=== PATIENT | male | born 1955 | race Caucasian/White ===

== ENCOUNTER 2016-08-29 11:24 | Inpatient (IN) ==
[2016-08-29] MEDS ORDERED: cefOXitin 2,000 MG in D5% in Water (Mini-Bag+) 100 ML IVPB ONE (11:57)
[2016-08-29] MEDS ORDERED: Albuterol 2.5 MG/3 ML NEBULIZER IH ONE ×2 (11:57→13:52)
[2016-08-29] MEDS ORDERED: Famotidine 20 MG/2 ML VIAL IVP ONE (11:59)
[2016-08-29] MEDS ORDERED: Acetaminophen IV 1,000 MG/100 ML INFUS..BTL IVPB ONE (11:59)
[2016-08-29] MEDS ORDERED: Ringers Solution, Lactated 1,000 ML IVC SCH (12:00)
--- NOTE | 2016-08-29 12:02 | Anesthesia Evaluation PreOp ---
Date of Encounter: 08/29/16 Time of Encounter: 12:00 - Past History Planned Operation: Laparoscopic Colectomy Rt Cardiac History: HTN, Hyperlipidemia Pulmonary History: JACQUELINE Dx (non compliant with CPAP) GENERAL OFFICE ASSOCIATE History: Denies Any Significant HX Other Medical History: Denies Any Significant HX Anesthesia History: No Prior Anesthetic Complications Alcohol Use: none Drug use: none Medications and Allergies Aspirin Enteric Coated [Aspirin EC] 81 mg PO DAILY 08/11/16 [History] Lisinopril [Zestril] 20 mg PO DAILY 08/11/16 [History] Lovastatin 40 mg PO DAILY 08/11/16 [History] Allergies No Known Allergies Allergy (Verified 08/11/16 08:10) - Meds/Allergy Pre-op Review Medications Reviewed: Yes Allergies Reviewed: Yes Beta Blockers on Current Med List: No Anesthesia Results - Labs O2 Sat Height 1.83 m Height 1.83 m Weight 131.542 kg Weight 131.542 kg O2 Sat by Pulse Oximetry 94 Vital Signs Temp Pulse Resp BP Pulse Ox 98.2 F 69 18 138/79 94 08/29/16 11:44 08/29/16 11:44 08/29/16 11:44 08/29/16 11:44 08/29/16 11:44 - Imaging EKG: report reviewed (NSR) Anesthesia Exam O2 Sat Height 1.83 m Height 1.83 m Weight 131.542 kg Weight 131.542 kg O2 Sat by Pulse Oximetry 94 Vital Signs Temp Pulse Resp BP Pulse Ox 98.2 F 69 18 138/79 94 08/29/16 11:44 08/29/16 11:44 08/29/16 11:44 08/29/16 11:44 08/29/16 11:44 Height: 6'0 Weight: 290 lbs NPO (# of Hours): MN Pain Scale: 0 - HEENT Pupil (Motor): Pupils equal, EOMI Mallampati: II Teeth: Normal Oral Opening: Greater than 3 - GENERAL OFFICE ASSOCIATE LOC: Oriented GENERAL OFFICE ASSOCIATE Motor: Normal RUE, Normal LUE, Normal RLE, Normal LLE, Normal Face GENERAL OFFICE ASSOCIATE Sensory: Normal: RUE, LUE, RLE, LLE, Face - Cardiac Rhythm: Regular Murmur: None JVD: No Carotid Bruit: No - Pulmonary Breath Sounds: bilateral Clear Respiratory Effort: Symmetrical Anesthesia Assess/Plan ASA Score: 2 Modified [place] Scale for Level of Consciousness: Cooperative, oriented, and tranquil Anesthetic Plan: General Monitoring Plan: Standard Monitors Recovery Plan: PACU (Discussed GA, agrees to proceed)
[2016-08-29] MEDS ORDERED: Lidocaine -MPF 2% 2 ML VIAL ONE ×2 (12:22→16:15)
[2016-08-29] MEDS ORDERED: *HR* Succinylcholine 200 MG/10 ML VIAL IVP ONE (12:22)
[2016-08-29] MEDS ORDERED: Neostigmine Methylsulfate 3 MG/3 ML SYRINGE ONE (12:22)
[2016-08-29] MEDS ORDERED: *HR* FentaNYL (PF) 100 MCG/2 ML VIAL ONE (12:22)
[2016-08-29] MEDS ORDERED: Ondansetron 4 MG/2 ML VIAL ONE ×2 (12:22→16:11)
[2016-08-29] MEDS ORDERED: *HR* Rocuronium Bromide 50 MG/5 ML VIAL ONE (12:22)
[2016-08-29] MEDS ORDERED: Lidocaine -MPF 4% 5 ML AMPUL ONE (12:22)
[2016-08-29] MEDS ORDERED: Dexamethasone 4 MG/ML VIAL ONE (12:22)
[2016-08-29] MEDS ORDERED: *HR* Midazolam HCl 2 MG/2 ML VIAL ONE (12:22)
[2016-08-29] MEDS ORDERED: *HR* Propofol 200 MG/20 ML VIAL IVP ONE (12:23)
--- NOTE | 2016-08-29 12:37 | History & Physical Report ---
Date of Encounter: 08/29/16 Time of Encounter: 12:36 24 Hour HP Update - Instructions Instructions: If the History and Physical is less than 30 days old and was completed prior to A.M. admission and or procedure and has NOT been updated on calendar day of procedure please complete this update prior to performing procedure. - Update Patient reports changes in Medical Condition: No Changes in examination, assessment, or condition: No Changes in Medication: No Preop tests/diagnostics Reviewed: Yes Pre-Op MRSA Screen: Negative Surgery Remains Indicated: Yes Consent for Planned Operative Procedure(s) Verified: Yes - Pre-Operative Checklist Preoperative Checklist Indicated: No Prophylactic Antibiotic Ordered: Yes Home Medications Include Beta Inderjit: No Beta Inderjit Taken Today (Day of Surgery): No Beta Inderjit Taken Yesterday (Day Prior to Surgery): No Is VTE Prophylaxis Indicated?: NO
[2016-08-29] MEDS ORDERED: EPHEDrine 50 MG/ML VIAL ONE (13:20)
[2016-08-29] MEDS ORDERED: *HR* Promethazine 25 MG/ML VIAL IVP PRN (13:51)
[2016-08-29] MEDS ORDERED: *HR* HYDROmorphone (PF) 1 MG/ML SYRINGE IVP PRN (13:51)
[2016-08-29] MEDS ORDERED: *HR* HYDROmorphone 2 MG/ML SYRINGE ONE (15:08)
[2016-08-29] MEDS ORDERED: Ketorolac 30 MG/ML VIAL ONE (16:11)
--- NOTE | 2016-08-29 16:24 | Operative Note ---
Date of procedure: 08/29/16 Pre-op diagnosis: Right colon polyp/mass Post-op diagnosis: same Procedure: Robot right colectomy Anesthesia: KORTNEY Surgeon: Wilner Morin Shop Helper: Josue Suazo Specimen: Right colon; omentum; small bowel Condition: stable Disposition: PACU Procedure in Detail: Date of surgery: 08/29/16 After properly identifying the patient, the patient was brought to the operating room and placed in the supine position. After proper IV sedation was achieved followed by general endotracheal intubation, the patient's abdomen was prepped and draped in a normal sterile fashion. A timeout was performed noting the patient's name and type of procedure to be performed. A 15 blade scalpel was used to make an incision just to the left of the umbilicus and just superior to the umbilicus. A 12 mm Visiport was then used to dissect through the subcutaneous tissue, external and internal oblique fascia, and transversalis abdominis fascia until the abdomen was entered. A laparoscopic camera was placed through the port which showed no injury to the intra- abdominal organs upon entry. The abdomen was insufflated with carbon dioxide and a right lower quadrant 12 mm port, left lower quadrant 12 mm port, and left upper quadrant 5 mm port was then placed under direct camera visualization. The patient was placed in a Trendelenburg position with a tilt towards the left side and the right lower quadrant was examined. The cecum and appendix could be easily identified and were retracted medially. The right lateral attachments were dissected away with Bovie cauterization. Further attachments of the terminal ileum were also dissected free with Bovie cauterization. This allowed for medial rotation of the cecum as well as the distal ileum. Additionally the Mesentery of the ileum was dissected to allow for further retraction of the small bowel. The focus was then placed on the hepatic flexure. First the right colon was retracted anteriorly and the mesentery was scored. The cautery was carried out from left to right with Bovie cauterization and utilization of a laparoscopic LigaSure. Of note staining of the serosa of the mid transverse colon was noted which was at the level of the mid transverse polyps that were removed during a colonoscopy prior to the surgery. Once this was performed dissection was carried out until the duodenum was identified and retracted inferiorly. Further dissection revealed the presence of the liver which was easily identified. The omentum was dissected away from the overlying hepatic flexure and transverse colon with Bovie cauterization and LigaSure. Once this was performed further scoring of the mesentery was performed leading up towards the hepatic flexure/proximal transverse colon. The decision was then made to go ahead and transect across the terminal ileum with a laparoscopic ELIEZER stapler. Once this was performed the decision was made to go ahead and convert to open procedure by making an incision just above the umbilicus for length of approximately 6-7 cm Bovie cauterization. This was carried down through the subcutaneous tissue and rectus fascia until the abdomen was entered. An Chente wound protector was then placed in the wound and the cecum was extruded through the incision. Further dissection with combination Bovie cauterization and then hand-held LigaSure was used to transect across the ileocolic vessels. The proximal transverse colon was then transected with a left scopic ELIEZER stapler. The ileal stump was examined and because of its tethering still in the right lower quadrant further dissection had to be carried out along the mesentery with a hand-held LigaSure. This resulted in needing to transect across the distal ileum and resect the small bowel segment for a length of approximately 10 cm. This was performed with a laparoscopic LigaSure. Additionally, a portion of the omentum which was obscuring the field of view was transected with a hand-held LigaSure and submitted to pathology. The decision was then made to perform a [id number] anastomosis with a laparoscopic ELIEZER stapler. The enterotomy was closed with a TA stapler and imbricated with interrupted 3-0 silk sutures. Hemostasis was noted to be maintained. The "clean/dirty" procedure was utilized during the anastomosis. There ws no evidence of active bleeding and a Seprafilm was placed within the wound/abdomen and the abdominal wall fascia was reapproximated with 2 running # 1 PDS sutures. The subcutaneous tissue was reapproximated with interrupted 2-0 Vicryl sutures and the epidermal and dermal layers for the remaining incisions were closed with ludy. Needle, sponge, and instrument counts were correct 2 and the incisions were covered with a 4x4 gauze and Band-Aids. The patient was aroused him IV sedation, extubated in the operating room without complication, and transported to the recovery room in stable condition.
[2016-08-29] MEDS ORDERED: Ipratropium/Albuterol Neb 3 ML ONE (16:33)
--- NOTE | 2016-08-29 17:36 | Anesthesia Evaluation Post Op ---
Date of Encounter: 08/29/16 Time of Encounter: 17:36 - Vital Signs Vital Signs: Vital Signs/O2 Sat, Most Current Temp Pulse Resp BP Pulse Ox 99.3 F 81 16 108/49 94 08/29/16 17:03 08/29/16 17:23 08/29/16 17:23 08/29/16 17:23 08/29/16 17:23 - Lungs Lungs: Clear Ascult./Percussion - Airway Airway: Non-obstructed - Cardiovascular Regular Rate - Mental Status Mental Status: Asleep with brisk response to light stimulation - Pain Pain Scale: 0 Pain Scale used: Numeric (1 - 10) - Nausea Vomiting Nausea Vomiting: Not Present - Hydration Hydration: NPO, Has not voided - Discharge PostOp Status: Transfer Patient to floor
[2016-08-29] MEDS ORDERED: Ondansetron 4 MG/2 ML VIAL IVP PRN (18:05)
[2016-08-29] MEDS ORDERED: Naloxone 0.4 MG/ML INJ IVP PRN (18:05)
[2016-08-29] MEDS: 0.9 % Sodium Chloride 1,000 ML IVC SCH (18:27)
[2016-08-30] MEDS: *HR* HYDROmorphone (PF) 1 MG/ML SYRINGE IVP PRN ×3 (00:37→14:14)
[2016-08-30] MEDS: cefOXitin 1,000 MG in D5% in Water (Mini-Bag+) 100 ML IVPB SCH ×3 (00:38→15:39)
[2016-08-30 02:53] LABS: Basophils % 0.1 %; Hematocrit 45.2 % (37.5-50.1); Hemoglobin 15.3 g/dL (12.9-16.9); Immature Granulocytes % 0.5 % (0-4); Lymphocytes # 0.7 K/mcL (0.6-4.6); Lymphocytes % 6.7 %; Mean Corpuscular HGB Conc 33.8 g/dL (31.6-35.5); Mean Corpuscular Hemoglobin 29.9 pg (28.0-33.3); Mean Corpuscular Volume 88.5 fL (83.0-100.0); Mean Platelet Volume 10.6 fL (9.4-12.4); Monocytes # 0.5 K/mcL (0.0-1.3); Monocytes % 4.8 %; Neutrophils # 8.9 K/mcL (1.6-8.9); Platelet Count 202 K/mcL (140-400); Red Blood Count 5.11 M/mcL (4.19-5.50); Red Cell Distribution Width 12.4 % (11.5-14.5); Segmented Neutrophils % 87.9 %
[2016-08-30 03:03] LABS: Calcium 8.5 mg/dL (8.6-10.8); Magnesium 1.8 mg/dL (1.6-2.6); Phosphorous 3.2 mg/dL (2.3-4.7)
[2016-08-30 03:09] LABS: Potassium 4.1 mEq/L (3.5-4.5)
[2016-08-30] MEDS: 0.9 % Sodium Chloride 1,000 ML IVC SCH ×2 (04:56→17:53)
[2016-08-30] MEDS: Pantoprazole 40 MG VIAL IVP SCH (08:18)
[2016-08-30] MEDS ORDERED: Ringers Solution, Lactated 1,000 ML IVC ONE (10:19)
--- NOTE | 2016-08-30 11:00 | General Surgery Progress Note ---
Date of Encounter: 08/30/16 Time of Encounter: 10:59 - Assessment and Plan (1) Mass of colon Current Visit: Yes Status: Acute Will Start clears today. Pt to ambulate in hallway. Subjective Patient reports: no new complaints, no flatus Objective Vital Signs - Last 8 Hours Temp Pulse Resp BP Pulse Ox 08/30/16 10:53 98.1 F 77 18 149/55 93 08/30/16 08:21 94 08/30/16 07:00 97.9 F 83 16 151/70 95 08/30/16 04:00 98.1 F 76 17 133/68 95 Intake and Output 08/29/16 08/30/16 08/30/16 23:59 07:59 15:59 Intake Total 0 / 0 1340 / 1340 160 / 160 Output Total 50 / 50 200 / 200 425 / 425 Balance -50 / -50 1140 / 1140 -265 / -265 Intake: IV Fluids 1100 / 1100 100 / 100 0.9 % Sodium Chloride 1, 1000 / 1000 000 ML @ 100 mls/hr IVC . Q10H ERNESTO Rx#:[id number] Mefoxin 1,000 MG In 100 / 100 100 / 100 Dextrose 5% (Minibag+) 100 ML 100 ML @ 200 mls/ hr IVPB Q8HR ERNESTO Rx#: [id number] Oral 0 / 0 240 / 240 60 / 60 Output: Urine 0 / 0 200 / 200 425 / 425 Estimated Blood Loss 50 / 50 Other: Meal NPO breakfast Weight 126.354 kg Blood Glucose* 140 Patient Weight 08/30/16 23:59 Weight 126.354 kg - General physical appearance well developed, well nourished - Eyes PERRL - Abdomen Abdomen: Present: bowel sounds present, soft, non tender - Incision Incision: Present: clean and dry - Labs 08/30/16 01:55 08/30/16 01:55 Diabetes panel 08/30/16 Range/Units 01:55 Sodium 137 (136-145) mEq/L Potassium 4.1 (3.5-4.5) mEq/L Chloride 103 (98-109) mEq/L Carbon Dioxide 26 (19-29) mEq/L BUN 24 (8-26) mg/dL Creatinine 1.50 H (0.72-1.25) mg/dL Glucose 180 H (70-99) mg/dL Calcium 8.5 L (8.6-10.8) mg/dL Calcium panel 08/30/16 Range/Units 01:55 Calcium 8.5 L (8.6-10.8) mg/dL Phosphorus 3.2 (2.3-4.7) mg/dL Pituitary panel 08/30/16 Range/Units 01:55 Sodium 137 (136-145) mEq/L Potassium 4.1 (3.5-4.5) mEq/L Chloride 103 (98-109) mEq/L Carbon Dioxide 26 (19-29) mEq/L BUN 24 (8-26) mg/dL Creatinine 1.50 H (0.72-1.25) mg/dL Glucose 180 H (70-99) mg/dL Calcium 8.5 L (8.6-10.8) mg/dL Adrenal panel 08/30/16 Range/Units 01:55 Sodium 137 (136-145) mEq/L Potassium 4.1 (3.5-4.5) mEq/L Chloride 103 (98-109) mEq/L Carbon Dioxide 26 (19-29) mEq/L BUN 24 (8-26) mg/dL Creatinine 1.50 H (0.72-1.25) mg/dL Glucose 180 H (70-99) mg/dL Calcium 8.5 L (8.6-10.8) mg/dL - VTE Documentation of Mechanical Device: Intermittent pneumatic compression device Consult Discharge Plan - Plan Referrals: Apryl Ross MD [Primary Care Provider] -
[2016-08-30] MEDS: *HR* Heparin 5,000 UNIT/ML VIAL SQ SCH ×2 (15:40→17:54)
[2016-08-31] MEDS: *HR* HYDROmorphone (PF) 1 MG/ML SYRINGE IVP PRN ×3 (02:57→21:25)
[2016-08-31] MEDS: 0.9 % Sodium Chloride 1,000 ML IVC SCH ×2 (04:03→14:15)
[2016-08-31 05:08] LABS: BUN/Creatinine Ratio 22 (6-26); Blood Urea Nitrogen 21 mg/dL (8-26); Calcium 8.4 mg/dL (8.6-10.8); Carbon Dioxide 28 mEq/L (19-29); Chloride 106 mEq/L (98-109); Glucose 112 mg/dL (70-99); Osmolality,Calculated 292 (280-300); Potassium 3.9 mEq/L (3.5-4.5); Sodium 139 mEq/L (136-145); eGFR For African Americans > 60 (> 60); eGFR For Non-African Americans > 60 (> 60)
[2016-08-31] MEDS: *HR* Heparin 5,000 UNIT/ML VIAL SQ SCH ×2 (06:36→18:17)
[2016-08-31] MEDS: Pantoprazole 40 MG VIAL IVP SCH (09:30)
--- NOTE | 2016-08-31 12:57 | General Surgery Progress Note ---
Date of Encounter: 08/31/16 Time of Encounter: 12:56 - Assessment and Plan (1) Mass of colon Current Visit: Yes Status: Acute We will continue clear liquids for now. I have discussed with the patient becomes nauseated to stop drinking. Pt to ambulate in hallway. Subjective Patient reports: no new complaints (Patient complains about some epigastric discomfort with clear liquids.) Objective Vital Signs - Last 8 Hours Temp Pulse Resp BP Pulse Ox 08/31/16 11:00 97.5 F L 63 18 162/80 97 08/31/16 07:36 97.9 F 65 18 152/78 93 Intake and Output 08/30/16 08/31/16 08/31/16 23:59 07:59 15:59 Intake Total 1073 / 1073 1190 / 1190 945 / 945 Output Total 1000 / 1000 850 / 850 350 / 350 Balance 73 / 73 340 / 340 595 / 595 Intake: IV Fluids 753 / 753 950 / 950 545 / 545 0.9 % Sodium Chloride 1, 653 / 653 950 / 950 545 / 545 000 ML @ 100 mls/hr IVC . Q10H ERNESTO Rx#:[id number] Mefoxin 1,000 MG In 100 / 100 Dextrose 5% (Minibag+) 100 ML 100 ML @ 200 mls/ hr IVPB Q8HR ERNESTO Rx#: [id number] Oral 320 / 320 240 / 240 400 / 400 Output: Urine 1000 / 1000 850 / 850 350 / 350 Other: Meal Dinner Breakfast Percent of Meal Consumed 75% # Voids 2 Weight 127.573 kg Patient Weight 08/31/16 23:59 Weight 127.573 kg - General physical appearance well developed, no distress - Eyes PERRL - Respiratory normal respiratory effort - Cardiovascular Cardiovascular exam: Present: NR - Abdomen Abdomen: Present: distended - Labs 08/30/16 01:55 08/31/16 03:30 Diabetes panel 08/31/16 Range/Units 03:30 Sodium 139 (136-145) mEq/L Potassium 3.9 (3.5-4.5) mEq/L Chloride 106 (98-109) mEq/L Carbon Dioxide 28 (19-29) mEq/L BUN 21 (8-26) mg/dL Creatinine 0.97 (0.72-1.25) mg/dL Glucose 112 H (70-99) mg/dL Calcium 8.4 L (8.6-10.8) mg/dL Calcium panel 08/31/16 Range/Units 03:30 Calcium 8.4 L (8.6-10.8) mg/dL Pituitary panel 08/31/16 Range/Units 03:30 Sodium 139 (136-145) mEq/L Potassium 3.9 (3.5-4.5) mEq/L Chloride 106 (98-109) mEq/L Carbon Dioxide 28 (19-29) mEq/L BUN 21 (8-26) mg/dL Creatinine 0.97 (0.72-1.25) mg/dL Glucose 112 H (70-99) mg/dL Calcium 8.4 L (8.6-10.8) mg/dL Adrenal panel 08/31/16 Range/Units 03:30 Sodium 139 (136-145) mEq/L Potassium 3.9 (3.5-4.5) mEq/L Chloride 106 (98-109) mEq/L Carbon Dioxide 28 (19-29) mEq/L BUN 21 (8-26) mg/dL Creatinine 0.97 (0.72-1.25) mg/dL Glucose 112 H (70-99) mg/dL Calcium 8.4 L (8.6-10.8) mg/dL - VTE Documentation of Mechanical Device: Intermittent pneumatic compression device Consult Discharge Plan - Plan Referrals: Apryl Ross MD [Primary Care Provider] -
[2016-09-01] MEDS: 0.9 % Sodium Chloride 1,000 ML IVC SCH ×2 (00:20→09:50)
[2016-09-01] MEDS: *HR* Heparin 5,000 UNIT/ML VIAL SQ SCH (06:40)
[2016-09-01] MEDS: Pantoprazole 40 MG VIAL IVP SCH (09:49)
[2016-09-01 10:54] VITALS: BP 157/79
[2016-09-01] MEDS ORDERED: *HR* OxyCODONE/APAP 10/325 TABLET PO PRN (12:40)
[2016-09-01] MEDS ORDERED: *HR* HYDROmorphone (PF) 1 MG/ML SYRINGE IVP PRN (12:41)
--- NOTE | 2016-09-01 14:18 | Discharge Summary ---
<Luh Watkins Barron - Last Filed: 09/01/16 14:15> Date of Encounter: 09/01/16 Time of Encounter: 14:16 - Discharge Diagnosis (1) Mass of colon Priority: Primary Status: Acute - Discharge Medications Prescriptions: OxyCODONE/APAP 5/325 [Percocet 5/325 MG] 1 each PO Q6HR PRN #30 tablet PRN Reason: Pain Docusate [Colace] 100 mg PO BID #30 capsule Home Medications: Aspirin Enteric Coated [Aspirin EC] 81 mg PO DAILY 08/11/16 [History] Atorvastatin [Lipitor] 40 mg PO HS 08/29/16 [History] Cholecalciferol (D-3) [Vitamin D] 1,000 unit PO DAILY 08/29/16 [History] Lisinopril/Hydrochlorothiazide [Zestoretic 20-25 mg Tablet] 1 each PO DAILY [History] Docusate [Colace] 100 mg PO BID #30 capsule 09/01/16 [Rx] OxyCODONE/APAP 5/325 [Percocet 5/325 MG] 1 each PO Q6HR PRN #30 tablet 09/01/16 [Rx] Allergies/Adverse Reactions: Allergies No Known Allergies Allergy (Verified 08/29/16 12:32) General Surgery Exam Initial Vital Signs Temp Pulse Resp BP Pulse Ox 98.2 F 69 18 138/79 94 08/29/16 11:44 08/29/16 11:44 08/29/16 11:44 08/29/16 11:44 08/29/16 11:44 - General physical appearance well developed, well nourished, no distress - Eyes normal ocular movement - ENT normal mucosa, atraumatic, normocephalic - Neck trachea midline - Respiratory normal respiratory effort, clear to auscultation - Cardiovascular Cardiovascular exam: Present: RRR, 15, 16 - Abdomen Abdomen general surgery: Present: bowel sounds present, soft, tender (expected post-operative tenderness) - Incision Incision: Present: clean and dry, intact - Integumentary Integumentary general surgery: Present: warm and dry - Neurologic Present: CN 2-12 grossly intact - Musculoskeletal Present: normal gait, normal posture - Psychiatric Psychiatric general surgery: Present: appropriate, oriented to person, oriented to place, oriented to time, speech is normal, memory intact Date of admission: 08/29/16 17:48 Primary care physician: Apryl Ross, Discharging clinician: Wilner Morin ([facility]) Anticipated date of discharge: 09/01/16 - Patient Status Disposition: Home, Self-Care Condition: Good Functional capacity at discharge: independent ambulation Overall status at discharge: patient is progressing back to baseline - Discharge Instructions Follow Up With: Apryl Ross MD [Primary Care Provider] - Wilner Morin MD [Partnered Physician] - 09/04/16 3:05 pm (surgery follow- up) Additional Instructions: Surgical instructions: #1 May shower, no tub bath X 2 weeks #2 Wash incisions with soap and water and pat dry daily #3 No lifting/pushing/pulling greater than 15 lb. for a total of 4 weeks from the date of surgery #4 No driving until off narcotics for 24 hours and able to safely react in the car #5 May climb stairs - Diet and Activity Activity: other (See additional instructions above) Diet: advance to your usual diet - Hospital Course Hospital course: Mr. Anderson is a 61 year old male s/p a right colectomy for a colon mass. He is POD #3 and is tolerating a soft diet without nausea/vomiting. He has had a bowel movement and is passing flatus. His vital signs are stable and he is afebrile. His pain is well controlled. He is voiding and ambulating without difficulty. We will begin discharge planning and plan for outpatient follow-up in the next 10-14 days. - Time Spent with Patient Total time spent providing and/or coordinating discharge services: Less than 30 minutes - Attending Attestation I examined this patient and my medical decision-making was reviewed with the BUTTER PRODUCTION SUPERVISOR/PA/Advanced Practice Nurse/Resident Physician. I agree with the documented findings, disposition and treatment plan as described except to the extent set forth below. <Wilner Morin - Last Filed: 09/01/16 16:21> Date of Encounter: 09/01/16 General Surgery Exam Initial Vital Signs Temp Pulse Resp BP Pulse Ox 98.2 F 69 18 138/79 94 08/29/16 11:44 08/29/16 11:44 08/29/16 11:44 08/29/16 11:44 08/29/16 11:44 Date of admission: 08/29/16 17:48 Primary care physician: Apryl Ross, - Hospital Course Hospital course: Mr. Anderson is a 61 year old male - Time Spent with Patient Total time spent providing and/or coordinating discharge services: - Attending Attestation I evaluated the patient and agree with the above assessment and plan. Positive flatus and BM. Minimal abdominal pain. Incision CDI. No erythema. Will advance diet and likely discharge home today.
== END 2016-09-01 16:35 | disposition home or self-care (01) | DRG 221 ==
LOC: SAMDAY 11:24 → 3ANU 17:48
PROVIDERS: ADMIT Surgery; ATTEND Surgery

== ENCOUNTER 2016-10-15 17:35 | Observation (INO) ==
--- NOTE | 2016-10-15 17:46 | Emergency Department Note ---
Disposition Clinical Impression: Neurosensory deficit Disposition: Admitted As Inpatient Condition: Good General Adult HPI - General Stated complaint: Left sided numbness Time Seen by Provider: 10/15/16 17:41 - Related Data Home Medications Medication Instructions Recorded Confirmed Atorvastatin [Lipitor] 40 mg PO HS 08/29/16 10/15/16 Lisinopril/Hydrochlorothiazide 1 each PO DAILY 08/29/16 10/15/16 [Zestoretic 20-25 mg Tablet] Niacin 500 mg PO DAILY 10/15/16 10/15/16 Allergies Allergy/AdvReac Type Severity Reaction Status Date / Time No Known Allergies Allergy Verified 08/29/16 12:32 Past Medical History - Past Medical History Medical history: Reports: hyperlipidemia, hypertension, other Surgical history: Reports: other Psychiatric history: Reports: no psych history - Social History Smoking Status: Current every day smoker Alcohol use: Reports: none Drug use: Reports: none Course Vital Signs Temperature 0 F L 10/15/16 17:39 Pulse Rate 78 10/15/16 17:39 Respiratory Rate 20 10/15/16 17:39 Blood Pressure 163/93 10/15/16 17:39 O2 Sat by Pulse Oximetry 95 10/15/16 17:39 Temperature 98.0 F 10/16/16 04:02 Pulse Rate 64 10/16/16 04:02 Respiratory Rate 18 10/16/16 04:02 Blood Pressure 126/75 10/16/16 04:02 O2 Sat by Pulse Oximetry 95 10/16/16 04:02 Oxygen Delivery Oxygen Delivery Room Air Medical Decision Making - Lab Data Result diagrams: 10/15/16 17:56 10/15/16 17:56 Lab Results 10/15/16 10/15/16 10/15/16 Range/Units 17:41 17:56 17:56 WBC 6.9 (4.3-11.1) K/mcL RBC 5.02 (4.19-5.50) M/mcL Hgb 15.3 (12.9-16.9) g/dL Hct 44.0 (37.5-50.1) % MCV 87.6 (83.0-100.0) fL MCH 30.5 (28.0-33.3) pg MCHC 34.8 (31.6-35.5) g/dL RDW 13.2 (11.5-14.5) % Plt Count 183 (140-400) K/mcL MPV 10.1 (9.4-12.4) fL Immature Gran % 0.3 (0-4) % Seg Neutrophils % 63.3 % Lymphocytes % 28.7 % Monocytes % 6.4 % Eosinophils % 1.0 % Basophils % 0.3 % Neutrophils # 4.3 (1.6-8.9) K/mcL Lymphocytes # 2.0 (0.6-4.6) K/mcL Monocytes # 0.4 (0.0-1.3) K/mcL Eosinophils # 0.1 (0.0-0.6) K/mcL Basophils # 0.0 (0.0-0.2) K/mcL PT 13.0 H (9.4-12.1) Seconds INR 1.2 APTT 30.6 (26.0-36.0) Seconds Sodium (136-145) mEq/L Potassium (3.5-4.5) mEq/L Chloride (98-109) mEq/L Carbon Dioxide (19-29) mEq/L BUN (8-26) mg/dL Creatinine (0.72-1.25) mg/dL Est GFR ( Amer) (> 60) Est GFR (Non-Af Amer) (> 60) BUN/Creatinine Ratio (6-26) Glucose (70-99) mg/dL POC Glucose 101 H (58-89) Calculated Osmolality (280-300) Calcium (8.6-10.8) mg/dL Troponin I (0-0.03) ng/mL 10/15/16 10/15/16 Range/Units 17:56 17:56 WBC (4.3-11.1) K/mcL RBC (4.19-5.50) M/mcL Hgb (12.9-16.9) g/dL Hct (37.5-50.1) % MCV (83.0-100.0) fL MCH (28.0-33.3) pg MCHC (31.6-35.5) g/dL RDW (11.5-14.5) % Plt Count (140-400) K/mcL MPV (9.4-12.4) fL Immature Gran % (0-4) % Seg Neutrophils % % Lymphocytes % % Monocytes % % Eosinophils % % Basophils % % Neutrophils # (1.6-8.9) K/mcL Lymphocytes # (0.6-4.6) K/mcL Monocytes # (0.0-1.3) K/mcL Eosinophils # (0.0-0.6) K/mcL Basophils # (0.0-0.2) K/mcL PT (9.4-12.1) Seconds INR APTT (26.0-36.0) Seconds Sodium 142 (136-145) mEq/L Potassium 3.6 (3.5-4.5) mEq/L Chloride 106 (98-109) mEq/L Carbon Dioxide 28 (19-29) mEq/L BUN 15 (8-26) mg/dL Creatinine 1.08 (0.72-1.25) mg/dL Est GFR ( Amer) > 60 (> 60) Est GFR (Non-Af Amer) > 60 (> 60) BUN/Creatinine Ratio 14 (6-26) Glucose 100 H (70-99) mg/dL POC Glucose (58-89) Calculated Osmolality 295 (280-300) Calcium 9.7 (8.6-10.8) mg/dL Troponin I 0.00 (0-0.03) ng/mL Attestation Statement - Attestation Attestation: I examined this patient and my medical decision-making was reviewed with the HITCH TECHNICIAN/PA/Advanced Practice Nurse/Resident Physician. I agree with the documented findings, disposition and treatment plan as described except to the extent set forth below. Ezkp-de-layy time provided Patient complains of left-sided facial numbness as well as involving his left upper and left lower extremity. Symptoms started 2 hours prior to arrival. Stroke alert activated. EKG reviewed by me 17:52: The patient now states symptoms started more closer to noon today which is approximately 5 hours and 40 minutes prior to arrival 18:00: I spoke with the telemedicine neurologist this patient is not a TPA candidate due to his low NIH (1) and onset 6 hours ago
--- NOTE | 2016-10-15 17:50 | Emergency Department Note ---
Disposition Clinical Impression: Neurosensory deficit Disposition: Still a Patient Condition: Critical Forms: ED Satisfaction Letter Time of Disposition: 19:17 Neuro HPI - General Chief Complaint: ED Neuro Symptoms/Deficit Stated Complaint: Left sided numbness Time Seen by Provider: 10/15/16 17:41 Source: patient, family Limitations: no limitations Nursing Notes Reviewed: Yes Vital Signs Reviewed: Yes - History of Present Illness HPI Narrative: Mr. Anderson, 61-year-old male, presents from home by POV with chief complaint of sensory changes. Onset noon today (initial interview patient said onset between 1600 and 1630 hrs. today). Described as left upper lip numbness, left upper extremity numbness, left lower extremity numbness. Associated with dizziness with rise from seated position. Patient was getting into his truck when the symptoms began. He continued and drove for a short time. He called his who brought him to this department. Patient denies any weakness, confusion, dysarthria, aphasia, choking or coughing, chest pains, palpitations, changes in vision. PMH: Hypertension, obesity PSH: One month status post partial colectomy and ileectomy with out ostomy bag placement. His only antiplatelet his aspirin. No anticoagulant. ROS: Positive: Left-sided change in sensation, dizziness Negative: headache, confusion, dysarthria, aphasia, chest pains, palpitations, changes in vision, fever, chills, nausea, vomiting. - Related Data Home Medications: Home Medications Medication Instructions Recorded Confirmed Atorvastatin [Lipitor] 40 mg PO HS 08/29/16 10/15/16 Lisinopril/Hydrochlorothiazide 1 each PO DAILY 08/29/16 10/15/16 [Zestoretic 20-25 mg Tablet] Niacin 500 mg PO DAILY 10/15/16 10/15/16 Allergies/Adverse Reactions: Allergies Allergy/AdvReac Type Severity Reaction Status Date / Time No Known Allergies Allergy Verified 08/29/16 12:32 All systems ED: reviewed and negative except as stated. Past Medical History - Past Medical History Medical history: Reports: hyperlipidemia, hypertension, other Surgical history: Reports: other Psychiatric history: Reports: no psych history - Social History Smoking Status: Current every day smoker Smokeless Tobacco Status: No Alcohol use: Reports: none Drug use: Reports: none Physical Exam Vital Signs Reviewed General: Patient is alert, oriented, and in no acute distress. HEENT: No facial asymmetry. Head is normocephalic and atraumatic. PERRLA, EOMI. trachea midline. Cardiovascular: Heart regular rate and rhythm without clicks, rubs, gallops, or murmurs. No JVD. PMI nondisplaced. Bilateral radial posterior tibial pulses 2 /4. Respiratory: Symmetric chest rise with good respiratory effort. Bilateral breath sounds are clear without wheezing, crackles, or rhonchi. Abdomen: Bowel sounds present normoactive x-4 quadrants. Abdomen is soft, nondistended, and nontender. No organomegaly noted. Musculoskeletal: Muscle strength 5/5 and symmetric bilaterally in upper and lower extremities. DTRs 2/4 and symmetric bilaterally in upper and lower extremities. Neuro: Cranial nerves II through XII without deficit. No drift of upper or lower extremities. Sensation light touch decreased in left forearm versus right as well as left severino versus right and left lip versus right upper lip. Psych: Patient's affect is appropriate for situation. - General Limitations: no limitations General appearance: alert, in no apparent distress Course Course Narrative: On initial evaluation, stated onset was symptoms was 1600. At time of initial interview, we were within the PA window. As such, code stroke was called. After patient returned from CT, timeline shifted to onset of symptoms at noon. As such, patient was not a TPA candidate. My attending, Dr. Roldan, spoke with [facility] neurology, Dr. Waite, who advised this patient is not a candidate for TPA. Spoke with Dr. Negrete, radiology: CT head negative. Chest X-Ray 10/15/16 17:42 IMPRESSION: No acute process. D/ / John Reilly MD / John Reilly MD Interpreting Provider: John Reilly MD Head CT 10/15/16 17:42 IMPRESSION: No acute intracranial abnormality. Findings were discussed with Micheal Roldan at 5:58 pm on 10/15/2016. D/ / Aman Canales MD / Aman Canales MD Interpreting Provider: Aman Canales MD Chest x-ray unremarkable. EKG unremarkable. Lab work unremarkable. Will admit patient to hospitalist service for continued evaluation and possible consult to neurology. 19:17 Patient signed out to the night team as hospitalist paged 45+ minutes ago and have yet to return the call. Vital Signs Temperature 0 F L 10/15/16 17:39 Pulse Rate 78 10/15/16 17:39 Respiratory Rate 20 10/15/16 17:39 Blood Pressure 163/93 10/15/16 17:39 O2 Sat by Pulse Oximetry 95 10/15/16 17:39 Temperature 0 F L 10/15/16 17:39 Pulse Rate 73 10/15/16 18:37 Respiratory Rate 17 10/15/16 18:37 Blood Pressure 111/79 10/15/16 18:37 O2 Sat by Pulse Oximetry 95 10/15/16 18:37 Oxygen Delivery Oxygen Delivery Room Air Neuro Symptoms/Deficit - Lab Data Lab results reviewed: Yes I reviewed the patient's lab results. Result diagrams: 10/15/16 17:56 10/15/16 17:56 Lab Results 10/15/16 10/15/16 10/15/16 Range/Units 17:56 17:56 17:56 WBC 6.9 (4.3-11.1) K/mcL RBC 5.02 (4.19-5.50) M/mcL Hgb 15.3 (12.9-16.9) g/dL Hct 44.0 (37.5-50.1) % MCV 87.6 (83.0-100.0) fL MCH 30.5 (28.0-33.3) pg MCHC 34.8 (31.6-35.5) g/dL RDW 13.2 (11.5-14.5) % Plt Count 183 (140-400) K/mcL MPV 10.1 (9.4-12.4) fL Immature Gran % 0.3 (0-4) % Seg Neutrophils % 63.3 % Lymphocytes % 28.7 % Monocytes % 6.4 % Eosinophils % 1.0 % Basophils % 0.3 % Neutrophils # 4.3 (1.6-8.9) K/mcL Lymphocytes # 2.0 (0.6-4.6) K/mcL Monocytes # 0.4 (0.0-1.3) K/mcL Eosinophils # 0.1 (0.0-0.6) K/mcL Basophils # 0.0 (0.0-0.2) K/mcL PT 13.0 H (9.4-12.1) Seconds INR 1.2 APTT 30.6 (26.0-36.0) Seconds Sodium 142 (136-145) mEq/L Potassium 3.6 (3.5-4.5) mEq/L Chloride 106 (98-109) mEq/L Carbon Dioxide 28 (19-29) mEq/L BUN 15 (8-26) mg/dL Creatinine 1.08 (0.72-1.25) mg/dL Est GFR ( Amer) > 60 (> 60) Est GFR (Non-Af Amer) > 60 (> 60) BUN/Creatinine Ratio 14 (6-26) Glucose 100 H (70-99) mg/dL Calculated Osmolality 295 (280-300) Calcium 9.7 (8.6-10.8) mg/dL Troponin I (0-0.03) ng/mL 10/15/16 Range/Units 17:56 WBC (4.3-11.1) K/mcL RBC (4.19-5.50) M/mcL Hgb (12.9-16.9) g/dL Hct (37.5-50.1) % MCV (83.0-100.0) fL MCH (28.0-33.3) pg MCHC (31.6-35.5) g/dL RDW (11.5-14.5) % Plt Count (140-400) K/mcL MPV (9.4-12.4) fL Immature Gran % (0-4) % Seg Neutrophils % % Lymphocytes % % Monocytes % % Eosinophils % % Basophils % % Neutrophils # (1.6-8.9) K/mcL Lymphocytes # (0.6-4.6) K/mcL Monocytes # (0.0-1.3) K/mcL Eosinophils # (0.0-0.6) K/mcL Basophils # (0.0-0.2) K/mcL PT (9.4-12.1) Seconds INR APTT (26.0-36.0) Seconds Sodium (136-145) mEq/L Potassium (3.5-4.5) mEq/L Chloride (98-109) mEq/L Carbon Dioxide (19-29) mEq/L BUN (8-26) mg/dL Creatinine (0.72-1.25) mg/dL Est GFR ( Amer) (> 60) Est GFR (Non-Af Amer) (> 60) BUN/Creatinine Ratio (6-26) Glucose (70-99) mg/dL Calculated Osmolality (280-300) Calcium (8.6-10.8) mg/dL Troponin I 0.00 (0-0.03) ng/mL - Radiology Data Radiology results reviewed: Yes I reviewed the patient's radiology results. Head CT 10/15/16 17:42 IMPRESSION: No acute intracranial abnormality. Findings were discussed with Micheal Roldan at 5:58 pm on 10/15/2016. D/ / Aman Canales MD / Aman Canales MD Interpreting Provider: Aamn Canales MD - EKG Data EKG attestation: Yes I reviewed and interpreted this EKG. EKG results narrative: EKG dated 10/15/16 at 17:42 interpreted as sinus rhythm with a rate of 77. Normal intervals of AK 150, QRS 101, QT/QTC 402/434. Left axis. Nonspecific ST -T changes. No previous EKG for comparison. NIH Stroke Scale - Level of Consciousness LOC: Alert - LOC Questions LOC Questions: Answers both correctly - LOC Commands LOC Commands: Performs both correctly - Best Gaze Best Gaze: Normal - Visual Visual: No visual loss - Facial Palsy Facial Palsy: Normal - Motor Arms Motor Arm-Left: No drift for 10 seconds Motor Arm-Right: No drift for 10 seconds - Motor Legs Motor Leg-Left: No drift for 5 seconds Motor Leg-Right: No drift for 5 seconds - Limb Ataxia Limb Ataxia: Absent of affected limb too weak to perform exam - Sensory Sensory: Mild to moderate loss, "not as sharp" - Best Language Best Language: No aphasia - Dysarthria Dysarthria: Normal - Extinction and Inattention Extinction and Inattention: Normal - NIHSS Total Score NIHSS Total Score: 1 TPA Checklist - LKW: 3-4.5 hrs Add. Contraindications Patient/family understanding: The patient/family members have been counseled and understood the risk, benefit , and alternatives of treatment. S.Tj - S.Tj Situation: Demographics, MOA Background: Presenting Complaint, Relevant PMH, Meds, & Allergies Assessment: Vital Signs, Course and respsone to treatment, Exam Concerns, Patient/Family Expectation, Pertinant Lab Results Recommendation: Recommendation based on pending studies, treatments, or consults S.B.A.RBibiana Report Given to: Dr. Nobles, Dr. Morris SVincent Repor Time: 19:17
[2016-10-15 18:07] LABS: Basophils % 0.3 %; Eosinophils # 0.1 K/mcL (0.0-0.6); Hemoglobin 15.3 g/dL (12.9-16.9); Immature Granulocytes % 0.3 % (0-4); Lymphocytes % 28.7 %; Mean Corpuscular HGB Conc 34.8 g/dL (31.6-35.5); Mean Corpuscular Hemoglobin 30.5 pg (28.0-33.3); Mean Corpuscular Volume 87.6 fL (83.0-100.0); Mean Platelet Volume 10.1 fL (9.4-12.4); Monocytes # 0.4 K/mcL (0.0-1.3); Monocytes % 6.4 %; Neutrophils # 4.3 K/mcL (1.6-8.9); Red Blood Count 5.02 M/mcL (4.19-5.50); Red Cell Distribution Width 13.2 % (11.5-14.5); Segmented Neutrophils % 63.3 %
[2016-10-15 18:09] LABS: Platelet Count 183 K/mcL (140-400)
[2016-10-15 18:10] LABS: INR 1.2
[2016-10-15 18:13] LABS: Activated Partial Thrombo Time 30.6 Seconds (26.0-36.0)
[2016-10-15 18:18] LABS: BUN/Creatinine Ratio 14 (6-26); Blood Urea Nitrogen 15 mg/dL (8-26); Calcium 9.7 mg/dL (8.6-10.8); Carbon Dioxide 28 mEq/L (19-29); Chloride 106 mEq/L (98-109); Glucose 100 mg/dL (70-99); Osmolality,Calculated 295 (280-300); Potassium 3.6 mEq/L (3.5-4.5); Sodium 142 mEq/L (136-145); eGFR For African Americans > 60 (> 60); eGFR For Non-African Americans > 60 (> 60)
--- NOTE | 2016-10-15 19:34 | Emergency Department Note ---
Disposition Clinical Impression: Neurosensory deficit Disposition: Admitted As Inpatient Condition: Good Forms: ED Satisfaction Letter Time of Disposition: 19:34 General Adult HPI - General Chief complaint: ED Neuro Symptoms/Deficit Stated complaint: Left sided numbness Time Seen by Provider: 10/15/16 17:41 Source: patient, family Limitations: no limitations - History of Present Illness Pain Scale: 0 - Related Data Home Medications Medication Instructions Recorded Confirmed Atorvastatin [Lipitor] 40 mg PO HS 08/29/16 10/15/16 Lisinopril/Hydrochlorothiazide 1 each PO DAILY 08/29/16 10/15/16 [Zestoretic 20-25 mg Tablet] Niacin 500 mg PO DAILY 10/15/16 10/15/16 Allergies Allergy/AdvReac Type Severity Reaction Status Date / Time No Known Allergies Allergy Verified 08/29/16 12:32 Past Medical History - Past Medical History Medical history: Reports: hyperlipidemia, hypertension, other Surgical history: Reports: other Psychiatric history: Reports: no psych history - Social History Smoking Status: Current every day smoker Smokeless Tobacco Status: No Alcohol use: Reports: none Drug use: Reports: none Physical Exam - General Limitations: no limitations General appearance: alert, in no apparent distress Course Course Narrative: Patient was signed out to me by trenton Torres and Dr. Roldan. Patient is resting comfortably in bed whenever I go bedside. He is complaining of tingling still to his left arm left leg face. He has no other complaints at this time. We will admit patient to the hospital. He is agreeable to this. He did have a consult with [facility] neurology. A denied TPA at this time. Patient' s symptoms were onset at noon today. Please see their note for further. - Consultations Consultation #1: Dr Cool accepted Pt in stable condition. Time: 19:32 Vital Signs Temperature 0 F L 10/15/16 17:39 Pulse Rate 78 10/15/16 17:39 Respiratory Rate 20 10/15/16 17:39 Blood Pressure 163/93 10/15/16 17:39 O2 Sat by Pulse Oximetry 95 10/15/16 17:39 Temperature 0 F L 10/15/16 17:39 Pulse Rate 73 10/15/16 18:37 Respiratory Rate 17 10/15/16 18:37 Blood Pressure 111/79 10/15/16 18:37 O2 Sat by Pulse Oximetry 95 10/15/16 18:37 Oxygen Delivery Oxygen Delivery Room Air Medical Decision Making - Lab Data Result diagrams: 10/15/16 17:56 10/15/16 17:56 Lab Results 10/15/16 10/15/16 10/15/16 Range/Units 17:56 17:56 17:56 WBC 6.9 (4.3-11.1) K/mcL RBC 5.02 (4.19-5.50) M/mcL Hgb 15.3 (12.9-16.9) g/dL Hct 44.0 (37.5-50.1) % MCV 87.6 (83.0-100.0) fL MCH 30.5 (28.0-33.3) pg MCHC 34.8 (31.6-35.5) g/dL RDW 13.2 (11.5-14.5) % Plt Count 183 (140-400) K/mcL MPV 10.1 (9.4-12.4) fL Immature Gran % 0.3 (0-4) % Seg Neutrophils % 63.3 % Lymphocytes % 28.7 % Monocytes % 6.4 % Eosinophils % 1.0 % Basophils % 0.3 % Neutrophils # 4.3 (1.6-8.9) K/mcL Lymphocytes # 2.0 (0.6-4.6) K/mcL Monocytes # 0.4 (0.0-1.3) K/mcL Eosinophils # 0.1 (0.0-0.6) K/mcL Basophils # 0.0 (0.0-0.2) K/mcL PT 13.0 H (9.4-12.1) Seconds INR 1.2 APTT 30.6 (26.0-36.0) Seconds Sodium 142 (136-145) mEq/L Potassium 3.6 (3.5-4.5) mEq/L Chloride 106 (98-109) mEq/L Carbon Dioxide 28 (19-29) mEq/L BUN 15 (8-26) mg/dL Creatinine 1.08 (0.72-1.25) mg/dL Est GFR ( Amer) > 60 (> 60) Est GFR (Non-Af Amer) > 60 (> 60) BUN/Creatinine Ratio 14 (6-26) Glucose 100 H (70-99) mg/dL Calculated Osmolality 295 (280-300) Calcium 9.7 (8.6-10.8) mg/dL Troponin I (0-0.03) ng/mL 10/15/16 Range/Units 17:56 WBC (4.3-11.1) K/mcL RBC (4.19-5.50) M/mcL Hgb (12.9-16.9) g/dL Hct (37.5-50.1) % MCV (83.0-100.0) fL MCH (28.0-33.3) pg MCHC (31.6-35.5) g/dL RDW (11.5-14.5) % Plt Count (140-400) K/mcL MPV (9.4-12.4) fL Immature Gran % (0-4) % Seg Neutrophils % % Lymphocytes % % Monocytes % % Eosinophils % % Basophils % % Neutrophils # (1.6-8.9) K/mcL Lymphocytes # (0.6-4.6) K/mcL Monocytes # (0.0-1.3) K/mcL Eosinophils # (0.0-0.6) K/mcL Basophils # (0.0-0.2) K/mcL PT (9.4-12.1) Seconds INR APTT (26.0-36.0) Seconds Sodium (136-145) mEq/L Potassium (3.5-4.5) mEq/L Chloride (98-109) mEq/L Carbon Dioxide (19-29) mEq/L BUN (8-26) mg/dL Creatinine (0.72-1.25) mg/dL Est GFR ( Amer) (> 60) Est GFR (Non-Af Amer) (> 60) BUN/Creatinine Ratio (6-26) Glucose (70-99) mg/dL Calculated Osmolality (280-300) Calcium (8.6-10.8) mg/dL Troponin I 0.00 (0-0.03) ng/mL
--- NOTE | 2016-10-15 19:36 | Emergency Department Note ---
START Narrative - START START: I examined this patient and my medical decision-making was reviewed with the CHILDREN'S TUTOR/PA/Advanced Practice Nurse/Resident Physician. I agree with the documented findings, disposition and treatment plan as described except to the extent set forth below. ED attending note: Patient seen with emergency medicine resident Dr. Morris. Please see a copy of his note for details of the H&P, evaluation, management and disposition of this patient. We independently had [id number] contact with the patient Briefly: The patient was signed out at 1900 by the departing day ED team of Dr. Roldan and Dr. Torres. Please see copy of thier note for details of the ED evaluation workup. Patient was worked up for stroke negative CT cleared by our acute stroke service and will be cleared for admission to [facility]. Awaiting hospitalist call back. Patient is stable. We introduced into the 19. He is comfortable. Meal ordered. Disposition pending.
[2016-10-15] MEDS ORDERED: Naloxone 0.4 MG/ML INJ IVP PRN (22:42)
[2016-10-15] MEDS ORDERED: Ondansetron 4 MG/2 ML VIAL IVP PRN (22:42)
[2016-10-15] MEDS ORDERED: Acetaminophen 325 MG TABLET PO PRN (22:42)
--- NOTE | 2016-10-15 23:07 | Internal Med History&Physical ---
Date of Encounter: 10/15/16 Time of Encounter: 22:15 Assessment and Plan (1) CVA (cerebral vascular accident) Current visit: Yes Status: Acute Suspected CVA versus TIA. Patient will be placed on observation on telemetry. MRI of the brain to evaluate for possible CVA. Patient does not have dysphagia and had food in the emergency department. He will be given diet. Depending on the results of the MRI, he will need physical therapy, occupational therapy and speech therapy evaluations. Patient stopped taking aspirin around the time of his surgery and has not resumed it. He will be resumed on aspirin and continued on statin at his high dose. Patient has been counseled extensively regarding smoking cessation. Echocardiogram and carotid Dopplers. Qualifiers: CVA mechanism: unspecified Qualified Code(s): I63.9 - Cerebral infarction, unspecified (2) HTN (hypertension) Current visit: Yes Status: Chronic Control blood pressure. Will hold blood pressure medications due to positivity of stroke. If the patient does not have a CVA on MRI, his blood pressure medications can be resumed. Qualifiers: Hypertension type: essential hypertension Qualified Code(s): I10 - Essential (primary) hypertension (3) Tobacco abuse Current visit: Yes Status: Chronic Counseled for more than 3 minutes regarding smoking cessation. Patient willing to quit. (4) Obesity (BMI 30-39.9) Current visit: Yes Status: Chronic Internal Medicine - H&P: HPI Chief complaint: Tingling left arm and leg Admitted From: Emergency Dept Plans for Post Hospital Care: Home History of present illness: Mr. Anderson is a 61 year old male with history of hypertension and tobacco abuse who presents to the emergency department due to tingling in his left arm, left leg and his lips. Patient states that today afternoon, he was working when he started experiencing tingling in his left arm and his lips. 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 The tingling resolved within a few minutes but it recurred and he had tingling in his left arm, left leg. These are associated with nausea. He denies any weakness in his arms or legs, difficulty swallowing, changes in his vision, chest pain, palpitations. The symptoms were associated with vertigo. He denies any vomiting, abdominal pain. He does report loose stools that have been happening since his abdominal surgery 1 month ago. He denies any fever or chills. He denies any similar episodes in the past. Initially in the emergency department, code stroke was called as the timing of onset of symptoms was felt to be 4 PM. However, later it was realized after his CT of the head, that his symptom onset was at an noon. Hence, code stroke was cancelled and he was not felt a candidate for tPA. Past Med Surg Social Fam HX - Past Medical History Attestation: Yes The following information was validated with the patient. Source: patient, obtained from family Medical history: hyperlipidemia, hypertension, other Psychiatric history: no psych history - Past Surgical History Surgical History: colectomy, other - Social History Smoking Status: Current every day smoker Smokeless Tobacco Status: No Alcohol use: none Drug use: none Occupational status: employed Current living situation: Home, With Family Activity Level: Independent ambulation, Very active Recent Out of Country Travel Within the Last 8 Weeks: No Exposure or Possible Exposure to Illness During Travel: No - Family History Mother Hx Family GI Disorders: Yes (Cirrhosis) Internal Medicine - H&P: Meds Atorvastatin [Lipitor] 40 mg PO HS 08/29/16 [History] Lisinopril/Hydrochlorothiazide [Zestoretic 20-25 mg Tablet] 1 each PO DAILY [History] Niacin 500 mg PO DAILY 10/15/16 [History] Allergies No Known Allergies Allergy (Verified 08/29/16 12:32) All Systems PM: A 10-system review of systems was performed and is negative for pertinent findings except as documented above in the HPI. Review of systems: 10 systems have been reviewed and are negative except as mentioned in the history of present illness - Constitutional Vitals: Temp Pulse Resp BP Pulse Ox 98.1 F 67 16 133/63 93 10/15/16 20:24 10/15/16 20:24 10/15/16 20:24 10/15/16 20:24 10/15/16 20:24 Exam: Gen.: Lying in bed. No acute distress. Eyes: Pupils equal, round and reactive to light. Extraocular muscles intact. ENT: Moist mucous membranes. No oropharyngeal erythema or discharge. Edentulous. Chest: Clear to auscultation bilaterally. No adventitious sounds present. CVS: First and second heart sounds present. No murmurs, rubs or gallops. Abdomen: Soft, nontender, obese. Bowel sounds present. No hepatosplenomegaly. Skin: No decubitus ulcers appreciated. PROGRAMMER: Cranial nerves II through XII intact grossly. Power is 5/5 in all 4 extremities. Sensation intact bilateral upper extremities. Reduced sensation left lower extremity. Psychiatric: Alert, awake and oriented to time, place and person. Lymphatic system: No lymphadenopathy appreciated Internal Med - H&P Results - Labs CBC & Chem 7: 10/15/16 17:56 10/15/16 17:56 - EKG Data -: EKG Interpreted by Myself EKG shows normal: sinus rhythm Rate: normal - Diagnostic Studies CT scan - head Status: image reviewed by me (No acute hemorrhage or abnormality identified)
[2016-10-16 04:06] LABS: Chol/HDL Ratio 5.9 (0-4.9)
[2016-10-16] MEDS ORDERED: Aspirin Enteric Coated 81 MG Tablet PO SCH (09:00)
--- NOTE | 2016-10-16 12:35 | Electrocardiograph Report ---
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
--- NOTE | 2016-10-16 13:08 | Neurology - Consult Note ---
Date of Encounter: 10/16/16 Time of Encounter: 12:25 Assessment and Plan (1) CVA (cerebral vascular accident) Current Visit: Yes Status: Acute MRI demonstrates small acute right thalamocapsular lacunar infarct and mild chronic microvascular ischemic disease. Carotid dopplar and echocardiogram ordered per medicine team. Continue ASA and statin. No motor deficits. Recommend smoking cessation and aerobic exercise to increase HDL. Qualifiers: CVA mechanism: unspecified Qualified Code(s): I63.9 - Cerebral infarction, unspecified History of Present Illness Chief complaint: tingling on left side of body HPI: Mr. Anderson is a 61 year old male with PMH significant for tobacco abuse and HTN who presented to the ER yesterday evening following symptoms of tingling in his lips, his left arm, and his left leg. He states that his symptoms starting with the tingling in his lips and left arm just prior to noon on 10/15. He felt dizzy at that time, which was described as a loss of balance, but he resumed working. 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 He attempted to contact his primary care provider, who had left the office by the time he felt concerned enough to call. At 4PM yesterday he had his blood pressure taken by the squad and it was found to be elevated. Around that time he was beginning to have tingling in his left leg as well. He denies every having symptoms like this before. He denies slurring of his speech, difficulty swallowing, and any weakness. He denies changes in vision and hearing as well. Past Med Surg Social Fam HX - Past Medical History Medical history: hyperlipidemia, hypertension, other Psychiatric history: no psych history - Past Surgical History Surgical History: other - Social History Smoking Status: Current every day smoker Smokeless Tobacco Status: No Alcohol use: none Drug use: none - Family History Mother Hx Family GI Disorders: Yes (Cirrhosis) Hx Family Endocrine Disorder: Yes (diabetic) Medications and Allergies Atorvastatin [Lipitor] 40 mg PO HS 08/29/16 [History] Lisinopril/Hydrochlorothiazide [Zestoretic 20-25 mg Tablet] 1 each PO DAILY [History] Niacin 500 mg PO DAILY 10/15/16 [History] Allergies No Known Allergies Allergy (Verified 08/29/16 12:32) All Systems: A 10-system review of systems was performed and is negative for pertinent findings except as documented above in the HPI. Physical Examination - Vital Signs Vital Signs: Initial Vital Signs Temp Pulse Resp BP Pulse Ox 0 F L 78 20 163/93 95 10/15/16 17:39 10/15/16 17:39 10/15/16 17:39 10/15/16 17:39 10/15/16 17:39 - Constitutional General appearance: comfortable - Neurologic Detailed motor examination: grossly full strength in all extremities, full strength in all major muscle groups Motor examination - right side: 5/5: deltoids, biceps, triceps, wrist flexion, wrist extension, international sourcing manager, hip flexors, tibialis Anterior, quadriceps, toe extension (EHL), plantarflexion Motor examination - left side: 5/5: deltoids, biceps, triceps, wrist flexion, wrist extension, hip flexors, international sourcing manager, quadriceps, tibialis Anterior, toe extension (EHL), plantarflexion Detailed sensory examination: other (decreased fine touch sensation in the left arm and leg as well as V2 distribution on the left side of the face. Intact pressure, temperature, and dull sensation bilaterally.) Reflexes: Biceps: 2+, Triceps: 2+, Brachioradialis: 2+, Patella: 2+, Achilles: 1 + Mental Status Examination: awake, alert, oriented to person, oriented to place, oriented to time, follows commands appropriately, answers questions appropriately, no agnosia, no aphasia, no aproxia Cranial nerve examination: PERRL, EOMI, visual rainey intact, corneal reflexes brisk symmetrically, sensory to face intact, mastication intact, no facial asymmetry is present, no dysarthria, hearing is intact symmetrically, soft palate elevates bilaterally upon phonation, flexes SCM and trapezius muscles symmetrically with full power, tongue protrudes midline, no atrophy or facial fasiculations present Cerebellar examination: no dysmetria, performs finger to nose and heel to severino symmetrically without ataxia, no difficulty with rapid alternating movements Results - Laboratory Findings CBC and BMP: 10/15/16 17:56 10/15/16 17:56 Abnormal lab findings: Abnormal lab results PT 13.0 Seconds (9.4-12.1) H 10/15/16 17:56 Glucose 100 mg/dL (70-99) H 10/15/16 17:56 POC Glucose 101 (58-89) H 10/15/16 17:41 Triglycerides 165 mg/dL (< 150) H 10/16/16 03:32 VLDL Cholesterol, Calc 33 mg/dL (< 31) H 10/16/16 03:32 HDL Cholesterol 20 mg/dL (40-59) L 10/16/16 03:32 Cholesterol/HDL Ratio 5.9 (0-4.9) H 10/16/16 03:32 Consult Discharge Plan - Plan Referrals: Apryl Ross MD [Primary Care Provider] -
[2016-10-16 15:18] VITALS: BP 131/75
--- NOTE | 2016-10-16 17:03 | Discharge Summary ---
Date of Encounter: 10/16/16 Time of Encounter: 16:45 - Discharge Diagnosis (1) Acute lacunar infarction Priority: Primary Status: Acute Comments: MRI revealing acute lacunar infarct. No focal neurological weaknesses regarding his strength. He did continue to endorse numbness and tingling to his left arm, left leg, and left side of his lips on his face however he stated there was improving throughout the course of his admission. Baby aspirin added to his regimen. Follow up outpatient (2) CVA (cerebral vascular accident) Priority: Primary Status: Acute (3) Neurosensory deficit Priority: Primary Status: Acute (4) HTN (hypertension) Priority: Secondary Status: Chronic Comments: Controlled with his regular home medications, follow-up outpatient Qualifiers: Hypertension type: essential hypertension Qualified Code(s): I10 - Essential (primary) hypertension (5) Tobacco abuse Priority: Secondary Status: Chronic Comments: Declines smoking cessation counseling (6) Obesity (BMI 30-39.9) Priority: Secondary Status: Chronic - Discharge Medications Prescriptions: Aspirin Enteric Coated [Aspirin EC] 81 mg PO DAILY #30 tablet. Home Medications: Atorvastatin [Lipitor] 40 mg PO HS 08/29/16 [History] Lisinopril/Hydrochlorothiazide [Zestoretic 20-25 mg Tablet] 1 each PO DAILY [History] Niacin 500 mg PO DAILY 10/15/16 [History] Aspirin Enteric Coated [Aspirin EC] 81 mg PO DAILY #30 tablet. 10/16/16 [Rx] Allergies/Adverse Reactions: Allergies No Known Allergies Allergy (Verified 08/29/16 12:32) Procedures/tests Complete & Pending: Procedures Performed prior 72 hours Category Date Time Status MR head/brain wo con [MR] Routine MRI 10/16/16 09:38 Draft EV carotid duplex imaging BI Routine Y 10/16/16 23:13 Completed EV echocardiogram Routine Y 10/16/16 23:13 Completed Date of admission: 10/15/16 19:45 Primary care physician: Apryl Ross, Consults: 10/16/16 11:28 Consult to Neurology [CONS] Routine Consulting Provider: [facility] Reason for Consult: numbness to left arm, leg and left side of lips. + lacunar infarct Time Notified: 11:29 Call Completed: Yes Discharging clinician: Molly Prescott Anticipated date of discharge: 10/16/16 - Patient Status Disposition: Home, Self-Care Condition: Good Functional capacity at discharge: independent ambulation Overall status at discharge: patient is progressing back to baseline - Discharge Instructions Follow Up With: Apryl Ross MD [Primary Care Provider] - 10/22/16 2:40 pm Additional Instructions: Follow-up with primary care provider as scheduled - Diet and Activity Activity: increase activity as tolerated Diet: low fat, low cholesterol, low salt diet Hospital course: Mr. Anderson is a 61 year old male with past medical history of hypertension, tobacco abuse, hyperlipidemia, rectal mass status post colectomy. Patient presented to the emergency department chief complaint of tingling in his left arm, left leg, and the left side of his lips. He states that he was working when he started to experience the tingling. 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 Patient stated the tingling resolved within a few minutes but then it reoccurred and was more pronounced. Associated symptoms include nausea. Patient denied any weakness, difficulty swallowing, changes in vision, chest pain or palpitations. Patient also endorsed vertigo. He denied any vomiting or abdominal pain. Workup in the emergency department unremarkable. Chest x- ray negative. Head CT negative for acute processes. Given the length of his symptoms prior to presentation, he was not a TPA candidate. He was admitted to the hospitalist service for further evaluation and management. Brain MRI revealing small acute lacunar infarct. Carotid ultrasound unremarkable. Echocardiogram unremarkable with ejection fraction of 60-65% with moderate diastolic dysfunction and an aneurysmal interatrial septum. Patient did not have any focal neurological weaknesses during this admission. Strength was unchanged. He did continue to endorse tingling to his left leg, left arm, and left side of his lips however this improved over the course of his admission. Neurology was brought on board who recommended starting the patient on a baby aspirin. Patient said he used to take baby aspirin in the past but was taken off it for his surgery and never started it back up. There is no indication for an OT or PT consultation. For further risk factor stratification, his statin was continued and his blood pressure was controlled with his regular home medications. He was discharged home in stable condition with close outpatient follow-up recommended. ITS Impressions Chest X-Ray 10/15/16 17:42 IMPRESSION: No acute process. D/ / John Reilly MD / John Reilly MD Interpreting Provider: John Reilly MD Head CT 10/15/16 17:42 IMPRESSION: No acute intracranial abnormality. Findings were discussed with Micheal Roldan at 5:58 pm on 10/15/2016. D/ / Aman Canales MD / Aman Canales MD Interpreting Provider: Aman Canales MD Brain MRI 10/16/16 09:38 IMPRESSION: Small, acute right thalamocapsular lacunar infarct. Mild chronic microvascular ischemic disease. D/ / 10/16/2016 11:15:18 Judi Alcantara MD / flip Interpreting Provider: Judi Alcantara MD 10/16/16 10:58 - Vascular Preliminary by Christopher Greco [facility] Num: [id number] : 1955 Patient Age: 61 Preliminary report for carotid duplex is bilateral non-stenotic plaque. Initialized on 10/16/16 10:58 - END OF NOTE Echo with saline contrast impressions: Normal LV systolic function, LVEF 60-65% . Mild left ventricular diastolic dysfunction. Normal right ventricular size and function. Mildly dilated left atrium. No significant valvular dysfunction. No evidence of pulmonary hypertension. Aneurysmal interatrial septum. No evidence of intracardiac shunting with agitated saline contrast. - Time Spent with Patient Total time spent providing and/or coordinating discharge services: - Constitutional Vitals: Temp Pulse Resp BP Pulse Ox 98.0 F 63 17 131/75 95 10/16/16 15:17 10/16/16 15:17 10/16/16 15:17 10/16/16 15:17 10/16/16 15:17 General appearance: Present: A&O X 3, pleasant, no acute distress, answers questions appropriately - Head Head exam: Present: atraumatic, normocephalic - Eye Eye exam: Present: PERRL, conjuntiva pink, sclera anicteric Pupils: Present: PERRL - Neck Neck exam general surgery: Present: supple, trachea midline. Absent: lymphadenopathy - Respiratory Respiratory exam: Present: CTAB. Absent: accessory muscle use, rales, respiratory distress, rhonchi, wheezes - Cardiovascular Cardiovascular exam: Present: RRR, +S1, +S2. Absent: diastolic murmur, gallop, rubs, systolic murmur - GI/Abdominal GI/Abdominal exam: Present: normal bowel sounds, soft, no peritoneal signs. Absent: distended, tenderness - Extremities Exam Extremities exam: Present: warm, radial pulses palpable and symetrical. Absent : calf tenderness, cyanotic, pedal edema - Expanded Lower Extremities Exam Neuro vascular tendon exam: Present: abnormal 2-point discrimination, decreased fine/light touch, sensory deficit. Absent: extremity cold to touch, pulse deficit Gait: Present: observed and normal - Neurological Exam Neurological exam: Present: alert, CN II-XII intact, normal gait, oriented X3, no focal deficits, strengths equal and symetr throughout. Absent: pronater drift, facial droop, speech deficit - Skin Skin exam: Present: dry, intact, normal color, warm
--- NOTE | 2016-10-18 12:44 | Carotid Imaging Report ---
Carotid Duplex Patient Name:Zenon Anderson Order Number:[id number] Procedure Date:10/16/2016 Date:1955ge:61 yrs Gender:Male Lt BP:145 / 82 mmHg Rt.BP:148 / 95 mmHgHeart Rate: Location:[facility] Room #: 33 Cdl Program Coordinator:Christopher Greco RN Referring MD:Ubaldo Lozano MD shirt finisher:Apryl Ross MD Reading MD:Marko Puentes MD Primary Indications:Cerebral Vascular Accident Risk Factors Yes/No Hypertension Yes Diabetes No Hypercholesterolemia Yes Smoker Previous Yes Hx of TIA No Hx of CVA No Hx of CAD/PTCA No Impressions: Findings: Bilateral carotid system has nonstenotic plaque. Recommendations: Test completed on 10/16/2016 at 8:50:00 am. Findings Carotid Duplex: Right: The right proximal common carotid artery has a PSV of 120 cm/s and a EDV of 23 cm/s. The right mid common carotid artery has a PSV of 92 cm/s and a EDV of 17 cm/s. The right distal common carotid artery has a PSV of 74 cm/s and a EDV of 14 cm/s. There is nonstenotic plaque in the right bifurcation with a PSV of 71 cm/s and a EDV of 21 cm/s. There is smooth heterogeneous plaque. The right proximal internal carotid artery has a PSV of 94 cm/s and a EDV of 25 cm/s. The right mid internal carotid artery has a PSV of 82 cm/s and a EDV of 23 cm/s. The right distal internal carotid artery has a PSV of 77 cm/s and a EDV of 31 cm/s. The right eca has a PSV of 209 cm/s and a EDV of 22 cm/s. The right vertebral artery has a PSV of 31 cm/s and a EDV of 7 cm/s. Left: The left proximal common carotid artery has a PSV of 84 cm/s and a EDV of 16 cm/s. The left mid common carotid artery has a PSV of 87 cm/s and a EDV of 21 cm/s. The left distal common carotid artery has a PSV of 68 cm/s and a EDV of 14 cm/s. There is nonstenotic plaque in the left bifurcation with a PSV of 62 cm/s and a EDV of 18 cm/s. There is smooth heterogeneous plaque. There is nonstenotic plaque in the left proximal internal carotid artery with a PSV of 70 cm/s and a EDV of 18 cm/s. There is smooth heterogeneous plaque. The left mid internal carotid artery has a PSV of 80 cm/s and a EDV of 29 cm/s. The left distal internal carotid artery has a PSV of 87 cm/s and a EDV of 35 cm/s. The left eca has a PSV of 141 cm/s and a EDV of 16 cm/s. The left vertebral artery has a PSV of 33 cm/s and a EDV of 9 cm/s. Prior Study: No prior study available for comparison. Carotid Results Right PSV EDV Assessment Proximal CCA 120 23 Normal Mid CCA 92 17 Normal Distal CCA 74 14 Normal Bifurcation 71 21 Non Stenotic Plaque Proximal ICA 94 25 Normal Mid ICA 82 23 Normal Distal ICA 77 31 Normal ECA 209 22 Normal Vertebral Artery 31 7 Normal Left PSV EDV Assessment Proximal CCA 84 16 Normal Mid CCA 87 21 Normal Distal CCA 68 14 Normal Bifurcation 62 18 Non Stenotic Plaque Proximal ICA 70 18 Non Stenotic Plaque Mid ICA 80 29 Normal Distal ICA 87 35 Normal ECA 141 16 Normal Vertebral Artery 33 9 Normal Ratio's Right ICA/CCA Ratio: 1.02 ICA/CCA Values: 94/92 Left ICA/CCA Ratio: 1.00 ICA/CCA Values: 87/87 Updated by Marko Puentes MD on 10/18/2016 12:39:31 PM electronically signed on 10/18/2016 12:39:48 PM with status of Final
== END 2016-10-16 17:51 | disposition home or self-care (01) ==
LOC: EMEROO 17:35 → 3BNU 17:35
PROVIDERS: ADMIT Nurse Practitioner Family; ATTEND Nurse Practitioner Family